=== PATIENT | female | born 1940 | race Caucasian/White ===

== ENCOUNTER 2020-05-20 09:26 | Inpatient (IN) | payer MEDICARE, OTHER ==
[~2020-05-20] VITALS: Ht 167.6 cm; Wt 44.5 kg
[2020-05-20 10:09] LABS: BASOPHILS % 0.4 % (0.0-1.0); EOSINOPHILS # (AUTO) 0.1 (0.0-0.4); EOSINOPHILS % 1.9 % (0.0-6.0); HEMATOCRIT 39.7 % (34.2-44.1); HEMOGLOBIN 12.1 g/dL (12.0-16.0); LYMPHOCYTES # (AUTO) 0.7 (1.0-3.2); LYMPHOCYTES % 10.3 % (18.0-39.1); MEAN CORPUSCULAR HGB CONC 30.5 g/dL (31-35); MEAN CORPUSCULAR VOLUME 91.9 fL (81-99); MONOCYTES # (AUTO) 0.4 (0.2-0.8); MONOCYTES % 5.5 % (4.4-11.3); NEUTROPHILS # (AUTO) 5.4 (2.1-6.9); NEUTROPHILS % 81.6 % (38.7-80.0); PLATELET COUNT 263 x10e3/uL (140-360); RED BLOOD COUNT 4.32 x10e6/uL (3.6-5.1); RED CELL DISTRIBUTION WIDTH 15.4 % (11.7-14.4)
[2020-05-20 10:30] LABS: ALANINE AMINOTRANSFERASE 21 IU/L (0-55); ALBUMIN 2.9 g/dL (3.5-5.0); ALBUMIN/GLOBULIN RATIO 0.8 (0.8-2.0); ALKALINE PHOSPHATASE 262 IU/L (40-150); ANION GAP 12.8 mmol/L (8-16); BLOOD UREA NITROGEN 15 mg/dL (7-26); BUN/CREATININE RATIO 21 (6-25); CALCIUM 8.9 mg/dL (8.4-10.2); CARBON DIOXIDE 27 mmol/L (22-29); CHLORIDE 105 mmol/L (98-107); CREATINE KINASE 98 IU/L (29-168); CREATININE, SERUM 0.72 mg/dL (0.57-1.11); EST GLOMERULAR FILTRATION RATE > 60 ML/MIN (60-); GLUCOSE 108 mg/dL (74-118); POTASSIUM 3.8 mmol/L (3.5-5.1); SODIUM 141 mmol/L (136-145)
[2020-05-20 10:49] LABS: INR 0.9; PARTIAL THROMBOPLASTIN TIME 27.8 seconds (23.8-35.5); PROTHROMBIN TIME 12.6 seconds (11.9-14.5)
[2020-05-20] MEDS: CEFTRIAXONE SOD 1 GM/NS 50 ML 50 ML IV SCH (11:02)
[2020-05-20] MEDS: AZITHROMYCIN 500MG/NS 250 ML 250 ML IV SCH (11:02)
[2020-05-20] MEDS ORDERED: SODIUM CHLORIDE 0.9% 500ML 500 ML IV ONE (11:30)
[2020-05-20] MEDS ORDERED: SODIUM CHLORIDE 0.9% 50ML 50 ML ONE (11:45)
[2020-05-20] MEDS ORDERED: FUROSEMIDE INJ 10 MG/ML 4 ML VIAL IV ONE (11:45)
[2020-05-20] MEDS ORDERED: IOPAMIDOL 370 MG/ML 200 ML INFUS..BTL INJ ONE (11:45)
[2020-05-20] MEDS ORDERED: ONDANSETRON HCL INJ 2MG/ML 2ML 2 MG/ML VIAL IV PRN (12:00)
[2020-05-20 14:17] VITALS: BP 144/82
[2020-05-20] MEDS ORDERED: POLYETHYLENE GLYCOL 3350 17 GM PACK PO PRN (14:45)
[2020-05-20] MEDS ORDERED: TEMAZEPAM 15 MG CAP PO PRN (14:45)
[2020-05-20] MEDS ORDERED: METOPROLOL TARTRATE INJ 1 MG/ML VIAL IV PRN (14:45)
[2020-05-20] MEDS ORDERED: ACETAMINOPHEN 325 MG TAB PO PRN (14:45)
[2020-05-20] MEDS: ACETAMINOPHEN/CODEINE 300MG - 30MG TAB PO PRN ×2 (15:09→22:39)
[2020-05-20 15:11] VITALS: BP 153/90
[2020-05-20 16:58] VITALS: BP 153/86
[2020-05-20] MEDS ORDERED: NORCO 10-325 T1 EACH PO (17:04)
[2020-05-20] MEDS ORDERED: METFORMIN HCL500 MG PO (17:04)
[2020-05-20] MEDS ORDERED: ASPIRIN325 MG PO (17:04)
[2020-05-20] MEDS ORDERED: URSODIOL300 MG PO (17:04)
[2020-05-20] MEDS ORDERED: LEVOTHYROXINE50 MCG PO (17:04)
[2020-05-20] MEDS ORDERED: SIMVASTATIN20 MG PO (17:04)
[2020-05-20] MEDS ORDERED: OMEPRAZOLE40 MG PO (17:04)
[2020-05-20] MEDS ORDERED: FUROSEMIDE20 MG PO (17:04)
[2020-05-20] MEDS ORDERED: AVAPRO300 MG PO (17:04)
[2020-05-20] MEDS: HYDROCODONE/APAP 10MG-325MG TAB PO PRN (18:17)
[2020-05-20] MEDS: DOCUSATE SODIUM 100 MG CAP PO SCH (18:17)
[2020-05-20] MEDS: FAMOTIDINE 20 MG/2 ML VIAL IV SCH (18:17)
[2020-05-20 18:33] LABS: CREATINE KINASE MB 3.3 ng/mL (0-5.0)
[2020-05-20 20:00] VITALS: BP 159/66
[2020-05-20] MEDS ORDERED: GABAPENTIN400 MG PO (20:33)
[2020-05-20] MEDS ORDERED: ULTRAM50 MG PO (20:33)
[2020-05-20 21:30] VITALS: BP 159/66
[2020-05-20] MEDS ORDERED: TRAMADOL HCL 50 MG TAB PO PRN (22:00)
[2020-05-20] MEDS ORDERED: FUROSEMIDE 20 MG TAB PO PRN (22:00)
[2020-05-20] MEDS: ALBUTEROL/IPRATROPIUM 3 ML NEB NEB PRN ×2 (22:45→23:13)
[2020-05-20] MEDS: GABAPENTIN 100 MG CAP PO SCH (23:08)
[2020-05-21] VITALS (7 sets, daily range): BP systolic 114–164; BP diastolic 67–81
[2020-05-21] MEDS: HYDROCODONE/APAP 10MG-325MG TAB PO PRN ×3 (00:43→19:10)
[2020-05-21] MEDS: GABAPENTIN 100 MG CAP PO SCH ×3 (05:15→18:01)
[2020-05-21 06:05] LABS: BASOPHILS % 0.4 % (0.0-1.0); EOSINOPHILS # (AUTO) 0.1 (0.0-0.4); EOSINOPHILS % 1.7 % (0.0-6.0); HEMATOCRIT 37.1 % (34.2-44.1); HEMOGLOBIN 11.3 g/dL (12.0-16.0); LYMPHOCYTES # (AUTO) 0.9 (1.0-3.2); LYMPHOCYTES % 12.2 % (18.0-39.1); MEAN CORPUSCULAR HEMOGLOBIN 28.2 pg (28-32); MEAN CORPUSCULAR HGB CONC 30.5 g/dL (31-35); MEAN CORPUSCULAR VOLUME 92.5 fL (81-99); MONOCYTES # (AUTO) 0.5 (0.2-0.8); MONOCYTES % 7.2 % (4.4-11.3); NEUTROPHILS # (AUTO) 5.5 (2.1-6.9); NEUTROPHILS % 78.2 % (38.7-80.0); PLATELET COUNT 259 x10e3/uL (140-360); RED BLOOD COUNT 4.01 x10e6/uL (3.6-5.1); RED CELL DISTRIBUTION WIDTH 15.5 % (11.7-14.4)
[2020-05-21 06:24] LABS: ALANINE AMINOTRANSFERASE 18 IU/L (0-55); ALBUMIN 2.8 g/dL (3.5-5.0); ALBUMIN/GLOBULIN RATIO 0.8 (0.8-2.0); ALKALINE PHOSPHATASE 233 IU/L (40-150); ANION GAP 13.3 mmol/L (8-16); BLOOD UREA NITROGEN 12 mg/dL (7-26); BUN/CREATININE RATIO 17 (6-25); CALCIUM 8.5 mg/dL (8.4-10.2); CARBON DIOXIDE 27 mmol/L (22-29); CHLORIDE 105 mmol/L (98-107); EST GLOMERULAR FILTRATION RATE > 60 ML/MIN (60-); GLUCOSE 94 mg/dL (74-118); POTASSIUM 3.3 mmol/L (3.5-5.1); SODIUM 142 mmol/L (136-145)
[2020-05-21] MEDS: ALBUTEROL/IPRATROPIUM 3 ML NEB NEB SCH (07:00)
[2020-05-21 07:01] LABS: MAGNESIUM 1.6 MG/DL (1.3-2.1); PHOSPHORUS 3.2 MG/DL (2.3-4.7)
[2020-05-21 07:21] LABS: THYROID STIMULATING HORMONE 4.397 uIU/mL (0.350-4.940)
[2020-05-21 07:24] LABS: CREATINE KINASE MB 2.4 ng/mL (0-5.0)
[2020-05-21] MEDS: URSODIOL 300 MG CAP PO SCH ×2 (12:18→18:01)
[2020-05-21] MEDS: IRBESARTAN 150 MG TAB PO SCH (12:18)
[2020-05-21] MEDS: METFORMIN HCL 500 MG TAB PO SCH ×2 (12:39→18:01)
[2020-05-21] MEDS ORDERED: SODIUM CHLORIDE 0.9% 250ML 250 ML ONE (12:40)
[2020-05-21] MEDS: ASPIRIN 325 MG TAB PO SCH (12:40)
[2020-05-21] MEDS: DOCUSATE SODIUM 100 MG CAP PO SCH ×2 (12:40→18:01)
[2020-05-21] MEDS: LEVOTHYROXINE SODIUM 50 MCG TAB PO SCH (12:41)
[2020-05-21] MEDS: FAMOTIDINE 20 MG/2 ML VIAL IV SCH ×2 (12:47→18:01)
[2020-05-21] MEDS: CEFTRIAXONE SOD 1 GM/NS 50 ML 50 ML IV SCH (12:58)
[2020-05-21] MEDS: AZITHROMYCIN 500MG/NS 250 ML 250 ML IV SCH (13:36)
[2020-05-21 15:00] LABS: BODY FLUID APPEARANCE CLEAR; BODY FLUID COLOR YELLOW; BODY FLUID TYPE PLEURAL; RBC,BODY FLUID 34 cells/uL; WBC,BODY FLUID 55 cells/uL
[2020-05-21 15:40] LABS: LYMPHOCYTES,BODY FLUID 2 %; MONO/MACROPHG,BODY FLUID 87 %; NEUTROPHILS,BODY FLUID 5 %; OTHER CELLS,BODY FLUID 6 %
[2020-05-21] MEDS: SIMVASTATIN 20 MG TAB PO SCH (21:00)
[2020-05-22] VITALS (7 sets, daily range): BP systolic 121–155; BP diastolic 59–74
[2020-05-22] MEDS: GABAPENTIN 100 MG CAP PO SCH ×4 (06:00→17:17)
[2020-05-22] MEDS: LEVOTHYROXINE SODIUM 50 MCG TAB PO SCH (06:00)
[2020-05-22] MEDS: METFORMIN HCL 500 MG TAB PO SCH ×2 (08:00→17:00)
[2020-05-22] MEDS: URSODIOL 300 MG CAP PO SCH ×2 (09:00→17:00)
[2020-05-22] MEDS: DOCUSATE SODIUM 100 MG CAP PO SCH ×2 (09:00→17:00)
[2020-05-22] MEDS: ASPIRIN 325 MG TAB PO SCH (09:00)
[2020-05-22] MEDS: IRBESARTAN 150 MG TAB PO SCH (09:00)
[2020-05-22] MEDS: FAMOTIDINE 20 MG/2 ML VIAL IV SCH ×2 (09:00→17:00)
[2020-05-22] MEDS: CEFTRIAXONE SOD 1 GM/NS 50 ML 50 ML IV SCH (09:45)
[2020-05-22] MEDS: AZITHROMYCIN 500MG/NS 250 ML 250 ML IV SCH (10:30)
[2020-05-22] MEDS: HYDROCODONE/APAP 10MG-325MG TAB PO PRN ×2 (12:32→18:40)
[2020-05-22] MEDS: ALBUTEROL/IPRATROPIUM 3 ML NEB NEB SCH (18:25)
[2020-05-22] MEDS: SIMVASTATIN 20 MG TAB PO SCH (21:15)
[2020-05-23] VITALS: BP 112/65
[2020-05-23] MEDS: GABAPENTIN 100 MG CAP PO SCH ×2 (00:55→07:20)
[2020-05-23] MEDS: HYDROCODONE/APAP 10MG-325MG TAB PO PRN ×2 (00:55→07:20)
[2020-05-23 04:00] VITALS: BP 128/72
[2020-05-23] MEDS: ALBUTEROL/IPRATROPIUM 3 ML NEB NEB SCH (07:08)
[2020-05-23] MEDS: LEVOTHYROXINE SODIUM 50 MCG TAB PO SCH (07:20)
[2020-05-23] MEDS: METFORMIN HCL 500 MG TAB PO SCH (08:00)
[2020-05-23 08:22] VITALS: BP 143/71
[2020-05-23 08:40] VITALS: BP 143/71
[2020-05-23] MEDS: ASPIRIN 325 MG TAB PO SCH (08:46)
[2020-05-23] MEDS: FAMOTIDINE 20 MG/2 ML VIAL IV SCH (08:46)
[2020-05-23] MEDS: IRBESARTAN 150 MG TAB PO SCH (08:46)
[2020-05-23] MEDS: URSODIOL 300 MG CAP PO SCH (08:46)
[2020-05-23] MEDS: DOCUSATE SODIUM 100 MG CAP PO SCH (08:47)
== END 2020-05-23 09:50 | disposition home or self-care (01) | DRG 432 ==
LOC: ER 09:55 → ERHOLD 11:47 → MED/SURG2 14:37
PROVIDERS: ADMIT Family Medicine; ATTEND Family Medicine
PROC: 0W993ZZ Drainage of Right Pleural Cavity, Percutaneous Approach (ICD-10-PCS; principal; 2020-05-21)
DX: K74.60 Unspecified cirrhosis of liver (principal); I50.23 Acute on chronic systolic (congestive) heart failure; E43 Unspecified severe protein-calorie malnutrition; J94.8 Other specified pleural conditions; J44.1 Chronic obstructive pulmonary disease with (acute) exacerbation; R18.8 Other ascites; Z68.1 Body mass index [BMI] 19.9 or less, adult; I11.0 Hypertensive heart disease with heart failure; E11.9 Type 2 diabetes mellitus without complications; E03.9 Hypothyroidism, unspecified; G89.29 Other chronic pain; Z11.59 Encounter for screening for other viral diseases; M54.9 Dorsalgia, unspecified
CPT/HCPCS: 32555; 36415; 71045; 71260; 74470; 76700; 80053; 80061; 82105; 82550; 82553; 82948; 83036; 83615; 83735; 83880; 84100; 84157; 84443; 84484; 85025; 85610; 85730; 87040; 87070; 87102; 87205; 87206; 88112; 88172; 89051; 93005; 93306; 94640; 99284; J0456; J0696; J1940; J7040; J7050; Q9967; U0002

== ENCOUNTER → 2020-07-28 | Outpatient (CLI) | payer MEDICARE, OTHER ==
[~2020-07-28] MED LIST: ASPIRIN325 MG PO; AVAPRO300 MG PO; FUROSEMIDE20 MG PO; GABAPENTIN400 MG PO; LEVOTHYROXINE50 MCG PO; METFORMIN HCL500 MG PO; NORCO 10-325 T1 EACH PO; OMEPRAZOLE40 MG PO; SIMVASTATIN20 MG PO; ULTRAM50 MG PO; URSODIOL300 MG PO
[2020-07-28 11:28] LABS: BASOPHILS % 0.6 % (0.0-1.0); EOSINOPHILS # (AUTO) 0.4 (0.0-0.4); EOSINOPHILS % 5.9 % (0.0-6.0); HEMATOCRIT 36.4 % (34.2-44.1); LYMPHOCYTES # (AUTO) 0.8 (1.0-3.2); LYMPHOCYTES % 11.6 % (18.0-39.1); MEAN CORPUSCULAR HEMOGLOBIN 29.5 pg (28-32); MEAN CORPUSCULAR HGB CONC 30.2 g/dL (31-35); MEAN CORPUSCULAR VOLUME 97.6 fL (81-99); MONOCYTES # (AUTO) 0.7 (0.2-0.8); MONOCYTES % 9.1 % (4.4-11.3); NEUTROPHILS # (AUTO) 5.3 (2.1-6.9); NEUTROPHILS % 72.4 % (38.7-80.0); PLATELET COUNT 161 x10e3/uL (140-360); RED BLOOD COUNT 3.73 x10e6/uL (3.6-5.1); RED CELL DISTRIBUTION WIDTH 15.5 % (11.7-14.4)
[2020-07-28 11:52] LABS: INR 0.89; PARTIAL THROMBOPLASTIN TIME 27.2 seconds (23.8-35.5); PROTHROMBIN TIME 12.5 seconds (11.9-14.5)
[2020-07-28 12:03] LABS: ALANINE AMINOTRANSFERASE 22 IU/L (0-55); ALBUMIN 3.1 g/dL (3.5-5.0); ALKALINE PHOSPHATASE 272 IU/L (40-150); ANION GAP 13.5 mmol/L (8-16); BLOOD UREA NITROGEN 31 mg/dL (7-26); BUN/CREATININE RATIO 37 (6-25); CALCIUM 9.4 mg/dL (8.4-10.2); CARBON DIOXIDE 26 mmol/L (22-29); CHLORIDE 104 mmol/L (98-107); CREATININE, SERUM 0.84 mg/dL (0.57-1.11); EST GLOMERULAR FILTRATION RATE > 60 ML/MIN (60-); GLUCOSE 109 mg/dL (74-118); POTASSIUM 4.5 mmol/L (3.5-5.1); SODIUM 139 mmol/L (136-145)
== END ==
LOC: US 10:59
PROVIDERS: ATTEND Internal Medicine Gastroenterology
DX: K74.60 Unspecified cirrhosis of liver (principal)
CPT/HCPCS: 36415; 76705; 80053; 85025; 85610; 85730

== ENCOUNTER → 2021-03-11 | Outpatient (CLI) | payer MEDICARE, OTHER | LOC: US 10:19 | PROVIDERS: ATTEND Internal Medicine Gastroenterology | CPT/HCPCS: 76705 ==

== ENCOUNTER → 2021-03-22 | Outpatient (CLI) | payer MEDICARE, OTHER ==
[~2021-03-22] MED LIST changes: +GADOBENATE DIMEGLUMINE 1 ML IV ONE; +SODIUM CHLORIDE 0.9% 50ML 50 ML ONE
== END ==
LOC: MRI 12:29
PROVIDERS: ATTEND Internal Medicine Gastroenterology
DX: K70.30 Alcoholic cirrhosis of liver without ascites (principal); R16.1 Splenomegaly, not elsewhere classified; Z12.89 Encounter for screening for malignant neoplasm of other sites
CPT/HCPCS: 74183; A9577

== ENCOUNTER → 2021-12-27 | Outpatient (CLI) | payer MEDICARE, OTHER ==
[~2021-12-27] MED LIST changes: -GADOBENATE DIMEGLUMINE 1 ML IV ONE; -SODIUM CHLORIDE 0.9% 50ML 50 ML ONE
== END ==
LOC: US 11:31
PROVIDERS: ATTEND Internal Medicine Gastroenterology
DX: J91.8 Pleural effusion in other conditions classified elsewhere (principal); K70.30 Alcoholic cirrhosis of liver without ascites; K59.00 Constipation, unspecified
CPT/HCPCS: 76604; 76700

== ENCOUNTER → 2022-02-16 | Outpatient (CLI) | payer MEDICARE, OTHER | LOC: RAD 13:30 | PROVIDERS: ATTEND Internal Medicine Critical Care Medicine | DX: J90 Pleural effusion, not elsewhere classified (principal) | CPT/HCPCS: 71046 ==

== ENCOUNTER → 2022-03-10 | Outpatient (CLI) | payer MEDICARE, OTHER ==
[2022-03-10 13:04] LABS: INR 0.93; PARTIAL THROMBOPLASTIN TIME 30.9 seconds (23.8-35.5); PROTHROMBIN TIME 13.3 seconds (11.9-14.5)
[2022-03-10 13:06] LABS: BASOPHILS % 0.4 % (0.0-1.0); EOSINOPHILS # (AUTO) 0.2 (0.0-0.4); EOSINOPHILS % 3.6 % (0.0-6.0); HEMATOCRIT 37.6 % (34.2-44.1); HEMOGLOBIN 11.6 g/dL (12.0-16.0); LYMPHOCYTES # (AUTO) 0.5 (1.0-3.2); LYMPHOCYTES % 9.3 % (18.0-39.1); MEAN CORPUSCULAR HEMOGLOBIN 29.4 pg (28-32); MEAN CORPUSCULAR HGB CONC 30.9 g/dL (31-35); MEAN CORPUSCULAR VOLUME 95.2 fL (81-99); MONOCYTES # (AUTO) 0.3 (0.2-0.8); MONOCYTES % 6.1 % (4.4-11.3); NEUTROPHILS # (AUTO) 4.5 (2.1-6.9); NEUTROPHILS % 80.2 % (38.7-80.0); PLATELET COUNT 195 x10e3/uL (140-360); RED BLOOD COUNT 3.95 x10e6/uL (3.6-5.1); RED CELL DISTRIBUTION WIDTH 15.2 % (11.7-14.4)
[2022-03-10 13:14] LABS: ALBUMIN 2.8 g/dL (3.5-5.0); ALBUMIN/GLOBULIN RATIO 0.7 (0.8-2.0); ANION GAP 13.3 mmol/L (8-16); CALCIUM 9.1 mg/dL (8.4-10.2); CREATININE, SERUM 0.82 mg/dL (0.57-1.11); POTASSIUM 3.3 mmol/L (3.5-5.1)
[2022-03-10 16:18] LABS: BODY FLUID APPEARANCE SL.CLOUDY; BODY FLUID COLOR STRAW; BODY FLUID TYPE PLEURAL
[2022-03-10 16:22] LABS: RBC,BODY FLUID 1000 cells/uL; WBC,BODY FLUID 1794 cells/uL
[2022-03-10 20:27] LABS: EOSINOPHILS,BODY FLUID 9 %; LYMPHOCYTES,BODY FLUID 10 %; MONO/MACROPHG,BODY FLUID 18 %; NEUTROPHILS,BODY FLUID 63 %
== END ==
LOC: US 11:59
PROVIDERS: ATTEND Internal Medicine Critical Care Medicine
DX: J90 Pleural effusion, not elsewhere classified (principal)
CPT/HCPCS: 32555; 36415; 71045; 80053; 83615; 84157; 85025; 85610; 85730; 87070; 87102; 87116; 87205; 87206; 88112; 88305; 89051

== ENCOUNTER → 2022-07-29 | Outpatient (CLI) | payer MEDICARE, OTHER | LOC: RAD 13:52 | PROVIDERS: ATTEND Internal Medicine Critical Care Medicine | DX: R09.02 Hypoxemia (principal); J44.9 Chronic obstructive pulmonary disease, unspecified; R06.00 Dyspnea, unspecified; J90 Pleural effusion, not elsewhere classified; Z68.1 Body mass index [BMI] 19.9 or less, adult; K21.9 Gastro-esophageal reflux disease without esophagitis; J30.2 Other seasonal allergic rhinitis | CPT/HCPCS: 71046 ==

== ENCOUNTER → 2022-08-16 | Outpatient (CLI) | payer MEDICARE, OTHER | LOC: CT 12:03 | PROVIDERS: ATTEND Internal Medicine Critical Care Medicine | DX: R09.02 Hypoxemia (principal); R06.00 Dyspnea, unspecified; J90 Pleural effusion, not elsewhere classified; J44.9 Chronic obstructive pulmonary disease, unspecified; R91.1 Solitary pulmonary nodule; J30.2 Other seasonal allergic rhinitis; Z68.1 Body mass index [BMI] 19.9 or less, adult | CPT/HCPCS: 71250 ==

== ENCOUNTER → 2023-02-16 | Outpatient (CLI) | payer MEDICARE, OTHER | LOC: RAD 12:29 | PROVIDERS: ATTEND Internal Medicine Critical Care Medicine | DX: R09.02 Hypoxemia (principal); R06.00 Dyspnea, unspecified; K74.60 Unspecified cirrhosis of liver; J44.9 Chronic obstructive pulmonary disease, unspecified; J90 Pleural effusion, not elsewhere classified; K21.9 Gastro-esophageal reflux disease without esophagitis; J30.2 Other seasonal allergic rhinitis; Z68.1 Body mass index [BMI] 19.9 or less, adult | CPT/HCPCS: 71046 ==

== ENCOUNTER → 2023-03-03 | Outpatient (CLI) | payer MEDICARE, OTHER | LOC: US 10:38 | PROVIDERS: ATTEND Nurse Practitioner | DX: K29.60 Other gastritis without bleeding (principal); K74.60 Unspecified cirrhosis of liver | CPT/HCPCS: 76700 ==

== ENCOUNTER → 2023-09-28 | Outpatient (REF) | payer MEDICARE, OTHER | LOC: RAD 13:23 | PROVIDERS: ATTEND Nurse Practitioner Family | DX: R09.02 Hypoxemia (principal); R06.02 Shortness of breath; K74.60 Unspecified cirrhosis of liver; J90 Pleural effusion, not elsewhere classified | CPT/HCPCS: 71046 ==

== ENCOUNTER → 2024-06-12 | Outpatient (REF) | payer MEDICARE, OTHER ==
[2024-06-12 11:50] LABS: BASOPHILS % 0.3 % (0.0-1.0); EOSINOPHILS # (AUTO) 0.1 (0.0-0.4); EOSINOPHILS % 2.1 % (0.0-6.0); HEMATOCRIT 28.3 % (34.2-44.1); HEMOGLOBIN 7.8 g/dL (12.0-16.0); LYMPHOCYTES # (AUTO) 0.5 (1.0-3.2); LYMPHOCYTES % 7.5 % (18.0-39.1); MEAN CORPUSCULAR HEMOGLOBIN 23.9 pg (28-32); MEAN CORPUSCULAR HGB CONC 27.6 g/dL (31-35); MEAN CORPUSCULAR VOLUME 86.5 fL (81-99); MONOCYTES # (AUTO) 0.6 (0.2-0.8); MONOCYTES % 8.1 % (4.4-11.3); NEUTROPHILS # (AUTO) 5.5 (2.1-6.9); NEUTROPHILS % 81.6 % (38.7-80.0); PLATELET COUNT 160 x10e3/uL (140-360); RED BLOOD COUNT 3.27 x10e6/uL (3.6-5.1); RED CELL DISTRIBUTION WIDTH 16.2 % (11.7-14.4); WHITE BLOOD COUNT 6.79 x10e3/uL (4.8-10.8)
[2024-06-12 12:02] LABS: INR 0.92; PROTHROMBIN TIME 12.8 seconds (11.9-14.5)
[2024-06-12 12:03] LABS: PARTIAL THROMBOPLASTIN TIME 30.9 seconds (23.8-35.5)
== END ==
LOC: US 11:05
PROVIDERS: ATTEND Nurse Practitioner Family
DX: R09.02 Hypoxemia (principal); R06.02 Shortness of breath; J90 Pleural effusion, not elsewhere classified; K74.60 Unspecified cirrhosis of liver
CPT/HCPCS: 32555; 36415; 71045; 85025; 85610; 85730; C1729